=== PATIENT | female | born 1970 | race Two or more races ===

== ENCOUNTER 2021-08-02 15:45 | Inpatient (IN) | payer OTHER ==
[~2021-08-02] VITALS: Ht 162.6 cm; Wt 99.2 kg
[2021-08-02 16:59] LABS: Basophils # (auto) 0.1 10 ^3/uL (0-0.2); Basophils % (auto) 0.7 % (0.0-2.0); Eosinophils # (auto) 0 10 ^3/uL (0-0.8); Eosinophils % (auto) 0.3 % (0.0-7.0); Hematocrit 37.6 % (36.0-46.0); Hemoglobin 12.5 g/dL (12.2-16.2); Lymphocytes # (auto) 0.9 10 ^3/uL (0.4-5.4); Lymphocytes % (auto) 10.5 % (10.0-50.0); Mean Corpuscular Hemoglobin 31.7 pg (28.0-32.0); Mean Corpuscular Hgb Conc. 33.1 g/dL (32.0-36.0); Mean Corpuscular Volume 95.7 fL (80.0-100.0); Monocytes # (auto) 0.3 10 ^3/uL (0-1.3); Monocytes % (auto) 3.3 % (0.0-12.0); Neutrophils # (auto) 7.2 10 ^3/uL (1.6-8.6); Neutrophils % (auto) 85.2 % (37.0-80.0); Red Blood Cells 3.93 10^6/uL (4.0-5.20); Red Cell Distribution Width 13.4 % (11.8-14.3); White Blood Cell 8.5 10^3/uL (4.4-10.8)
[2021-08-02 17:15] LABS: Albumin 3.3 g/dL (3.4-5.0); Calcium 9.3 mg/dL (8.5-10.1); Magnesium 3.3 mg/dL (1.6-2.6); Potassium 5.1 mmol/L (3.5-5.1)
[2021-08-02 17:20] LABS: BUN/Creatinine Ratio 9.3; Bilirubin, Total 0.3 mg/dL (0.2-1.0); Total Protein 8.1 g/dL (6.4-8.2)
[2021-08-02] MEDS ORDERED: hydrALAZINE HCL 20 MG/ML VL IV ONE (18:30)
[2021-08-02] MEDS ORDERED: ONDANSETRON HCL 4 MG/2 ML VIAL ONE (18:58)
[2021-08-02] MEDS ORDERED: ONDANSETRON HCL 4 MG/2 ML VIAL IV ONE (19:00)
[2021-08-02] MEDS ORDERED: NITROGLYCERIN 0.4 MG SL TAB SL PRN (21:00)
[2021-08-02] MEDS ORDERED: ACETAMINOPHEN 325 MG TAB PO PRN (21:00)
[2021-08-02] MEDS ORDERED: DEXTROSE (50%) 50ML SYRG IV PRN (21:00)
[2021-08-02] MEDS ORDERED: MORPHINE SULFATE INJECTION 2 MG/ML SYRG IV PRN (21:00)
[2021-08-02] MEDS ORDERED: ONDANSETRON HCL 4 MG/2 ML VIAL IV PRN (21:00)
[2021-08-02] MEDS ORDERED: hydrALAZINE HCL 25 MG TAB PO SCH (22:00)
[2021-08-02] MEDS: ACCU-CHEK COMFORT CURVE STRIP VI SCH (22:14)
[2021-08-02] MEDS: InsuLIN REG 1unit/0.01ml Soln (100units/ml) SC SCH (22:14)
[2021-08-02] MEDS ORDERED: HYDR50TA15 PO (23:16)
[2021-08-02] MEDS: cloNIDine HCL 0.1 MG TAB PO PRN (23:23)
[2021-08-02 23:38] VITALS: BP 183/85
[2021-08-03] VITALS (8 sets, daily range): BP systolic 127–183; BP diastolic 62–85
[2021-08-03] MEDS: cloNIDine HCL 0.1 MG TAB PO PRN (05:17)
[2021-08-03] MEDS: ACCU-CHEK COMFORT CURVE STRIP VI SCH ×4 (06:03→21:37)
[2021-08-03] MEDS: InsuLIN REG 1unit/0.01ml Soln (100units/ml) SC SCH ×4 (06:04→21:40)
[2021-08-03 07:27] LABS: Basophils # (auto) 0.1 10 ^3/uL (0-0.2); Basophils % (auto) 0.6 % (0.0-2.0); Eosinophils # (auto) 0 10 ^3/uL (0-0.8); Eosinophils % (auto) 0.3 % (0.0-7.0); Hematocrit 33.5 % (36.0-46.0); Hemoglobin 11.1 g/dL (12.2-16.2); Lymphocytes # (auto) 0.7 10 ^3/uL (0.4-5.4); Lymphocytes % (auto) 8.2 % (10.0-50.0); Mean Corpuscular Hemoglobin 31.6 pg (28.0-32.0); Mean Corpuscular Hgb Conc. 33.1 g/dL (32.0-36.0); Mean Corpuscular Volume 95.5 fL (80.0-100.0); Monocytes # (auto) 0.3 10 ^3/uL (0-1.3); Neutrophils # (auto) 7.2 10 ^3/uL (1.6-8.6); Neutrophils % (auto) 86.9 % (37.0-80.0); Nucleated Red Blood Cells % 0.1 %; Red Cell Distribution Width 13.3 % (11.8-14.3); White Blood Cell 8.3 10^3/uL (4.4-10.8)
[2021-08-03 07:48] LABS: Albumin 2.8 g/dL (3.4-5.0); BUN/Creatinine Ratio 9.7; Bilirubin, Total 0.3 mg/dL (0.2-1.0); Total Protein 6.8 g/dL (6.4-8.2)
[2021-08-03 08:20] LABS: Potassium 5.7 mmol/L (3.5-5.1)
[2021-08-03] MEDS: SEVELAMER 800 MG TAB PO SCH ×3 (11:47→18:02)
[2021-08-03] MEDS: amLODIPine BESYLATE 5 MG TAB PO SCH (11:48)
[2021-08-03] MEDS: SODIUM ZIRCONIUM CYCL 10 GM PAK PO SCH ×3 (12:34→21:37)
[2021-08-03 15:35] LABS: Alanine Aminotransferase 13 U/L (13-56); Albumin 2.8 g/dL (3.4-5.0); Aspartate Aminotransferase 17 U/L (15-37); Bilirubin, Direct < 0.1 mg/dL (0-0.2)
[2021-08-03 15:37] LABS: Alkaline Phosphatase 88 U/L (45-117); Bilirubin, Total 0.3 mg/dL (0.2-1.0); Total Protein 6.8 g/dL (6.4-8.2)
[2021-08-03] MEDS: hydrALAZINE HCL 25 MG TAB PO SCH (21:36)
[2021-08-04] MEDS: SODIUM ZIRCONIUM CYCL 10 GM PAK PO SCH (06:00)
[2021-08-04] MEDS ORDERED: SODIUM CHL 0.9% 1000 ML BAG XX ONE (07:00)
[2021-08-04 07:41] LABS: Potassium 4.2 mmol/L (3.5-5.1)
[2021-08-04 07:42] LABS: Basophils # (auto) 0 10 ^3/uL (0-0.2); Basophils % (auto) 0.3 % (0.0-2.0); Eosinophils # (auto) 0 10 ^3/uL (0-0.8); Hematocrit 36.8 % (36.0-46.0); Hemoglobin 12.2 g/dL (12.2-16.2); Lymphocytes # (auto) 0.4 10 ^3/uL (0.4-5.4); Mean Corpuscular Hemoglobin 31.2 pg (28.0-32.0); Mean Corpuscular Hgb Conc. 33.2 g/dL (32.0-36.0); Mean Corpuscular Volume 94.1 fL (80.0-100.0); Monocytes # (auto) 0.3 10 ^3/uL (0-1.3); Monocytes % (auto) 2.6 % (0.0-12.0); Neutrophils # (auto) 10.1 10 ^3/uL (1.6-8.6); Neutrophils % (auto) 93.1 % (37.0-80.0); Nucleated Red Blood Cells % 0.1 %; Red Blood Cells 3.91 10^6/uL (4.0-5.20); Red Cell Distribution Width 13.4 % (11.8-14.3); White Blood Cell 10.9 10^3/uL (4.4-10.8)
[2021-08-04 07:48] LABS: BUN/Creatinine Ratio 9.5; Calcium 9.2 mg/dL (8.5-10.1)
[2021-08-04] MEDS: SEVELAMER 800 MG TAB PO SCH ×3 (08:00→18:00)
[2021-08-04 09:00] VITALS: BP 141/71
[2021-08-04] MEDS: hydrALAZINE HCL 25 MG TAB PO SCH ×2 (09:52→21:36)
[2021-08-04] MEDS: amLODIPine BESYLATE 5 MG TAB PO SCH (09:52)
[2021-08-04] MEDS ORDERED: CHOLECALCIFEROL (VITD3) 2,000 UNIT CAP/TAB PO ONE (10:15)
[2021-08-04] MEDS: B-COMPLEX W/ C & FOLIC ACID(NEPHROVITE TAB) PO SCH (11:00)
[2021-08-04] MEDS: ACCU-CHEK COMFORT CURVE STRIP VI SCH ×3 (11:30→21:12)
[2021-08-04] MEDS: InsuLIN REG 1unit/0.01ml Soln (100units/ml) SC SCH ×3 (11:57→21:12)
[2021-08-04 13:00] VITALS: BP 159/60
[2021-08-04 22:00] VITALS: BP 153/74
[2021-08-05 05:00] VITALS: BP 163/68
[2021-08-05] MEDS: ACCU-CHEK COMFORT CURVE STRIP VI SCH ×4 (05:15→21:52)
[2021-08-05] MEDS: InsuLIN REG 1unit/0.01ml Soln (100units/ml) SC SCH ×4 (05:15→21:48)
[2021-08-05 08:00] VITALS: BP 180/67
[2021-08-05] MEDS: B-COMPLEX W/ C & FOLIC ACID(NEPHROVITE TAB) PO SCH (08:26)
[2021-08-05] MEDS: hydrALAZINE HCL 25 MG TAB PO SCH ×3 (08:26→21:52)
[2021-08-05] MEDS: SEVELAMER 800 MG TAB PO SCH ×3 (08:26→21:49)
[2021-08-05] MEDS: CHOLECALCIFEROL (VITD3) 2,000 UNIT CAP/TAB PO SCH (08:27)
[2021-08-05] MEDS: amLODIPine BESYLATE 5 MG TAB PO SCH (08:27)
[2021-08-05 10:43] VITALS: BP 149/73
[2021-08-05] MEDS ORDERED: AML5T PO (11:01)
[2021-08-05] MEDS ORDERED: HYDR25TA87 PO (11:01)
[2021-08-05] MEDS ORDERED: SEVE800T PO (11:01)
[2021-08-05 12:00] VITALS: BP 151/71
[2021-08-05 16:19] LABS: Hepatitis B Surface Antibody Positive (Negative)
[2021-08-05 16:57] LABS: Hepatitis A Total Antibody Negative (Negative)
[2021-08-05 16:59] LABS: Hepatitis C Antibody Negative (Negative)
[2021-08-05 17:00] VITALS: BP_SYST 175; BP_SYST 181; BP_DIAS 76; BP_DIAS 77
[2021-08-05 22:36] VITALS: BP 150/74
[2021-08-06 05:30] VITALS: BP 138/103
[2021-08-06] MEDS: hydrALAZINE HCL 25 MG TAB PO SCH ×3 (06:16→21:24)
[2021-08-06] MEDS: InsuLIN REG 1unit/0.01ml Soln (100units/ml) SC SCH ×4 (06:17→21:23)
[2021-08-06] MEDS: ACCU-CHEK COMFORT CURVE STRIP VI SCH ×4 (06:19→21:20)
[2021-08-06] MEDS ORDERED: SODIUM CHL 0.9% 1000 ML BAG XX ONE (07:00)
[2021-08-06] MEDS: SEVELAMER 800 MG TAB PO SCH ×3 (08:00→18:07)
[2021-08-06 09:00] VITALS: BP 166/82
[2021-08-06 10:16] VITALS: BP 127/70
[2021-08-06 13:00] VITALS: BP 113/64
[2021-08-06] MEDS: CHOLECALCIFEROL (VITD3) 2,000 UNIT CAP/TAB PO SCH (13:04)
[2021-08-06] MEDS: amLODIPine BESYLATE 5 MG TAB PO SCH (13:06)
[2021-08-06] MEDS: B-COMPLEX W/ C & FOLIC ACID(NEPHROVITE TAB) PO SCH (13:06)
[2021-08-06] MEDS ORDERED: ASPirin 81 mg TAB PO ONE (15:30)
[2021-08-06 17:00] VITALS: BP 156/68
[2021-08-06] MEDS ORDERED: LORazepam 2MG/ML-1ML VIAL IV PRN (21:00)
[2021-08-06 22:00] VITALS: BP 153/62
[2021-08-06] MEDS ORDERED: ATORVASTATIN 20 MG TAB PO SCH (22:00)
[2021-08-06 23:46] LABS: Cholesterol 254 mg/dL (< 200)
[2021-08-06 23:50] LABS: HDL Cholesterol 37 mg/dL (40-59); LDL Cholesterol 168 mg/dL (< 100); Triglycerides 285 mg/dL (< 150)
[2021-08-07] VITALS (20 sets, daily range): BP systolic 118–172; BP diastolic 56–88
[2021-08-07] MEDS: ACCU-CHEK COMFORT CURVE STRIP VI SCH ×4 (07:51→22:00)
[2021-08-07] MEDS: hydrALAZINE HCL 25 MG TAB PO SCH ×3 (07:56→22:21)
[2021-08-07] MEDS: SEVELAMER 800 MG TAB PO SCH ×4 (08:00→18:00)
[2021-08-07] MEDS: InsuLIN REG 1unit/0.01ml Soln (100units/ml) SC SCH ×4 (08:25→22:00)
[2021-08-07] MEDS: CHOLECALCIFEROL (VITD3) 2,000 UNIT CAP/TAB PO SCH (10:00)
[2021-08-07] MEDS: B-COMPLEX W/ C & FOLIC ACID(NEPHROVITE TAB) PO SCH (10:00)
[2021-08-07] MEDS: ATORVASTATIN 20 MG TAB PO SCH ×2 (11:30→22:21)
[2021-08-07 14:09] LABS: Basophils # (auto) 0.1 10 ^3/uL (0-0.2); Basophils % (auto) 0.8 % (0.0-2.0); Eosinophils # (auto) 0.2 10 ^3/uL (0-0.8); Eosinophils % (auto) 2.3 % (0.0-7.0); Hematocrit 35.9 % (36.0-46.0); Hemoglobin 11.6 g/dL (12.2-16.2); Lymphocytes % (auto) 11.5 % (10.0-50.0); Mean Corpuscular Hemoglobin 30.5 pg (28.0-32.0); Mean Corpuscular Hgb Conc. 32.2 g/dL (32.0-36.0); Mean Corpuscular Volume 94.7 fL (80.0-100.0); Monocytes # (auto) 0.5 10 ^3/uL (0-1.3); Monocytes % (auto) 5.4 % (0.0-12.0); Neutrophils # (auto) 7.1 10 ^3/uL (1.6-8.6); Nucleated Red Blood Cells % 0.1 %; Red Blood Cells 3.79 10^6/uL (4.0-5.20); Red Cell Distribution Width 13.2 % (11.8-14.3); White Blood Cell 8.9 10^3/uL (4.4-10.8)
[2021-08-07 14:18] LABS: BUN/Creatinine Ratio 7.4; Calcium 8.9 mg/dL (8.5-10.1); Potassium 4.2 mmol/L (3.5-5.1)
[2021-08-07] MEDS: ASPirin 81 mg TAB PO SCH (14:23)
[2021-08-07] MEDS: amLODIPine BESYLATE 5 MG TAB PO SCH (14:24)
[2021-08-08] VITALS (21 sets, daily range): BP systolic 114–170; BP diastolic 37–77
[2021-08-08] MEDS: hydrALAZINE HCL 25 MG TAB PO SCH ×3 (03:25→21:57)
[2021-08-08 05:49] LABS: Potassium 3.5 mmol/L (3.5-5.1)
[2021-08-08 05:56] LABS: BUN/Creatinine Ratio 8.5
[2021-08-08] MEDS: InsuLIN REG 1unit/0.01ml Soln (100units/ml) SC SCH ×3 (06:41→17:00)
[2021-08-08] MEDS: ACCU-CHEK COMFORT CURVE STRIP VI SCH ×4 (06:43→22:00)
[2021-08-08] MEDS: SEVELAMER 800 MG TAB PO SCH ×3 (08:00→18:12)
[2021-08-08] MEDS: ASPirin 81 mg TAB PO SCH (09:58)
[2021-08-08] MEDS: CHOLECALCIFEROL (VITD3) 2,000 UNIT CAP/TAB PO SCH (09:58)
[2021-08-08] MEDS: B-COMPLEX W/ C & FOLIC ACID(NEPHROVITE TAB) PO SCH (09:58)
[2021-08-08] MEDS: amLODIPine BESYLATE 5 MG TAB PO SCH (09:59)
[2021-08-08] MEDS: ATORVASTATIN 20 MG TAB PO SCH (21:57)
[2021-08-09] VITALS (14 sets, daily range): BP systolic 131–162; BP diastolic 53–81
[2021-08-09] MEDS: InsuLIN REG 1unit/0.01ml Soln (100units/ml) SC SCH ×5 (00:21→22:00)
[2021-08-09 03:31] LABS: Hematocrit 34.2 % (36.0-46.0); Hemoglobin 11.3 g/dL (12.2-16.2)
[2021-08-09 03:50] LABS: BUN/Creatinine Ratio 9.2; Potassium 3.6 mmol/L (3.5-5.1)
[2021-08-09 04:07] LABS: % Iron Saturation 24.8 % (15-50)
[2021-08-09] MEDS: hydrALAZINE HCL 25 MG TAB PO SCH ×3 (06:00→22:25)
[2021-08-09] MEDS: cloNIDine HCL 0.1 MG TAB PO PRN (06:57)
[2021-08-09] MEDS ORDERED: SODIUM CHL 0.9% 1000 ML BAG XX ONE (07:00)
[2021-08-09] MEDS: ACCU-CHEK COMFORT CURVE STRIP VI SCH ×4 (07:00→22:00)
[2021-08-09] MEDS: B-COMPLEX W/ C & FOLIC ACID(NEPHROVITE TAB) PO SCH (10:00)
[2021-08-09] MEDS: SEVELAMER 800 MG TAB PO SCH ×3 (10:49→18:39)
[2021-08-09] MEDS: ASPirin 81 mg TAB PO SCH (10:49)
[2021-08-09] MEDS: amLODIPine BESYLATE 5 MG TAB PO SCH (10:50)
[2021-08-09] MEDS: CHOLECALCIFEROL (VITD3) 2,000 UNIT CAP/TAB PO SCH (10:50)
[2021-08-09] MEDS ORDERED: MIDAZOLAM HCL 2MG/2ML 2ml VIAL (1mg/ml) IV ONE (14:15)
[2021-08-09] MEDS ORDERED: EPOETIN ALFA-EPBX 10,000 UNIT/1ML VIAL SC ONE (21:00)
[2021-08-09] MEDS: ATORVASTATIN 20 MG TAB PO SCH (22:25)
[2021-08-10] VITALS (17 sets, daily range): BP systolic 113–181; BP diastolic 52–115
[2021-08-10 04:08] LABS: Calcium 9.3 mg/dL (8.5-10.1); Potassium 3.8 mmol/L (3.5-5.1)
[2021-08-10] MEDS: hydrALAZINE HCL 25 MG TAB PO SCH ×3 (05:50→22:00)
[2021-08-10] MEDS: InsuLIN REG 1unit/0.01ml Soln (100units/ml) SC SCH ×4 (05:50→22:00)
[2021-08-10] MEDS: ACCU-CHEK COMFORT CURVE STRIP VI SCH ×4 (07:26→22:00)
[2021-08-10] MEDS: SEVELAMER 800 MG TAB PO SCH ×3 (08:00→18:27)
[2021-08-10] MEDS: B-COMPLEX W/ C & FOLIC ACID(NEPHROVITE TAB) PO SCH (09:55)
[2021-08-10] MEDS: CHOLECALCIFEROL (VITD3) 2,000 UNIT CAP/TAB PO SCH (09:55)
[2021-08-10] MEDS: ASPirin 81 mg TAB PO SCH (09:55)
[2021-08-10] MEDS: amLODIPine BESYLATE 5 MG TAB PO SCH (10:00)
[2021-08-10] MEDS: ATORVASTATIN 20 MG TAB PO SCH (22:00)
[2021-08-11] VITALS: BP 153/79
[2021-08-11 05:00] VITALS: BP_SYST 130; BP_SYST 156; BP_DIAS 64; BP_DIAS 69
[2021-08-11] MEDS: ACCU-CHEK COMFORT CURVE STRIP VI SCH ×2 (06:37→14:11)
[2021-08-11] MEDS: hydrALAZINE HCL 25 MG TAB PO SCH (06:37)
[2021-08-11] MEDS: InsuLIN REG 1unit/0.01ml Soln (100units/ml) SC SCH ×2 (06:40→14:11)
[2021-08-11] MEDS: ASPirin 81 mg TAB PO SCH (09:02)
[2021-08-11] MEDS: amLODIPine BESYLATE 5 MG TAB PO SCH (09:03)
[2021-08-11] MEDS: B-COMPLEX W/ C & FOLIC ACID(NEPHROVITE TAB) PO SCH (09:03)
[2021-08-11] MEDS: CHOLECALCIFEROL (VITD3) 2,000 UNIT CAP/TAB PO SCH (09:03)
[2021-08-11] MEDS: SEVELAMER 800 MG TAB PO SCH ×2 (09:04→12:00)
[2021-08-11] MEDS ORDERED: HYDR50TA15 PO (09:28)
[2021-08-11] MEDS ORDERED: ATOR20TA50 PO (09:28)
[2021-08-11] MEDS ORDERED: SEVE800T PO (09:28)
[2021-08-11] MEDS ORDERED: B-CO1TAB33 PO (09:28)
[2021-08-11] MEDS ORDERED: ASPI1CHW15 PO (09:28)
[2021-08-11 09:41] VITALS: BP 138/79
[2021-08-11 13:00] VITALS: BP 162/73
== END 2021-08-11 14:00 | disposition home or self-care (01) | DRG 682 ==
LOC: ER 15:56 → TELE 20:55 → TELE-CENTR 23:05 → DOU IN ICU 08-07 00:53 → CATH ICU 08-07 20:07 → TELE-CENTR 08-11 03:00
PROVIDERS: ADMIT Nurse Practitioner; ATTEND Internal Medicine
PROC: 5A1D70Z Performance of Urinary Filtration, Intermittent, Less than 6 Hours Per Day (ICD-10-PCS; 2021-08-04)
PROC: 5A1D70Z Performance of Urinary Filtration, Intermittent, Less than 6 Hours Per Day (ICD-10-PCS; 2021-08-06)
PROC: 05HB33Z Insertion of Infusion Device into Right Basilic Vein, Percutaneous Approach (ICD-10-PCS; 2021-08-07)
PROC: 05HD33Z Insertion of Infusion Device into Right Cephalic Vein, Percutaneous Approach (ICD-10-PCS; 2021-08-07)
PROC: B54MZZA Ultrasonography of Right Upper Extremity Veins, Guidance (ICD-10-PCS; 2021-08-07)
PROC: 5A1D70Z Performance of Urinary Filtration, Intermittent, Less than 6 Hours Per Day (ICD-10-PCS; principal; 2021-08-10)
PROC: B24BZZ4 Ultrasonography of Heart with Aorta, Transesophageal (ICD-10-PCS; 2021-08-10)
DX: I12.0 Hypertensive chronic kidney disease with stage 5 chronic kidney disease or end stage renal disease (principal); G92.8 Other toxic encephalopathy; I63.441 Cerebral infarction due to embolism of right cerebellar artery; N18.6 End stage renal disease; I16.1 Hypertensive emergency; E11.65 Type 2 diabetes mellitus with hyperglycemia; E11.22 Type 2 diabetes mellitus with diabetic chronic kidney disease; E87.5 Hyperkalemia; E66.01 Morbid (severe) obesity due to excess calories; Z68.37 Body mass index [BMI] 37.0-37.9, adult; E55.9 Vitamin D deficiency, unspecified; E78.5 Hyperlipidemia, unspecified; Z20.822 Contact with and (suspected) exposure to COVID-19; E87.6 Hypokalemia; Z99.2 Dependence on renal dialysis; Z79.82 Long term (current) use of aspirin; Z79.899 Other long term (current) drug therapy; Z82.49 Family history of ischemic heart disease and other diseases of the circulatory system; Z83.3 Family history of diabetes mellitus; Z86.73 Personal history of transient ischemic attack (TIA), and cerebral infarction without residual deficits; Z91.19 Patient's noncompliance with other medical treatment and regimen; Z91.15 Patient's noncompliance with renal dialysis; Z90.49 Acquired absence of other specified parts of digestive tract
CPT/HCPCS: 36415; 70450; 70545; 70547; 70551; 71045; 80048; 80053; 80061; 80076; 82140; 82306; 82728; 82962; 83036; 83540; 83550; 83735; 83880; 83970; 84100; 84443; 84484; 85014; 85018; 85025; 86704; 86706; 86708; 86803; 87081; 87340; 87426; 90935; 93005; 93306; 93312; 93886; 96374; 96375; 97110; 97116; 97163; 97530; 99152; G0378; J1815; J2250; J2405